=== PATIENT | female | born 1995 | race Two or more races ===

== ENCOUNTER 2017-09-23 11:32 | Emergency (ER) | payer OTHER ==
[~2017-09-23] VITALS: Ht 162.6 cm; Wt 64.9 kg
[2017-09-23] MEDS ORDERED: TOPAMAX50 MG (11:56)
== END 2017-09-23 17:23 | disposition home or self-care (01) ==
LOC: ER 11:32
DX: S60.222A Contusion of left hand, initial encounter (principal); V49.9XXA Car occupant (driver) (passenger) injured in unspecified traffic accident, initial encounter; Y93.89 Activity, other specified; Y92.488 Other paved roadways as the place of occurrence of the external cause; Y99.8 Other external cause status